=== PATIENT | male | born 1985 | race Caucasian/White ===

== ENCOUNTER 2019-04-08 10:14 | Emergency (ER) | payer OTHER ==
[2019-04-08] MEDS ORDERED: Morphine 4 MG/ML VIAL ONE (10:33)
[2019-04-08] MEDS ORDERED: Ondansetron PF 4 MG/2 ML Vial ONE (10:33)
[2019-04-08 10:47] LABS: #Eosinphils 0.1 thou/uL (0.0-0.7); #Lymphocytes 1.5 thou/uL (1.20-3.40); #Monocytes 0.8 thou/uL (0.11-0.59); #Neutrophils 14.1 thou/uL (1.40-6.50); %Basophils 0.3 % (0.0-1.0); %Eosinophils 0.6 % (0.0-10.0); %Lymphocytes 9.1 % (21.0-51.0); %Monocytes 4.8 % (0.0-10.0); %Neutrophils 85.3 % (42.0-75.0); Hemoglobin 14.5 g/dL (14.0-18.0); Mean Corpuscular HGB CONC 34.6 g/dL (32.0-36.0); Mean Corpuscular Hemoglobin 29.9 pg (27.0-31.0); Mean Corpuscular Volume 86.4 fL (78.0-98.0); Mean Platelet Volume 9.4 fL (7.4-10.4); Platelet Count 284 thou/uL (130-400); RBC Distribution Width 11.4 % (11.5-14.5); Red Blood Cell (RBC) Count 4.85 mill/uL (4.70-6.10); White Blood Cell (WBC) Count 16.5 thou/uL (4.8-10.8)
[2019-04-08 11:05] LABS: ALT (SGPT) 78 U/L (8-55); AST (SGOT) 23 U/L (5-34); Albumin 4.8 g/dL (3.5-5.0); Alkaline Phosphatase 64 U/L (40-150); Anion Gap 15 mmol/L (10-20); BUN (Urea Nitrogen) 21 mg/dL (8.9-20.6); Bilirubin, Total 0.4 mg/dL (0.2-1.2); Calc. Creatinine Clearance 0 mL/min (70-130); Calcium 9.9 mg/dL (7.8-10.44); Carbon Dioxide 21 mmol/L (22-29); Chloride 102 mmol/L (98-107); Estimated GFR-MDRD 65; Globulin 3.4 g/dL (2.4-3.5); Glucose 104 mg/dL (70-105); Potassium 4.4 mmol/L (3.5-5.1); Protein, Total 8.2 g/dL (6.0-8.3); Sodium 134 mmol/L (136-145)
--- NOTE | 2019-04-08 11:16 | CT ---
CT of abdomen and pelvis: 04/08/2019 COMPARISON: None available HISTORY: Flank pain TECHNIQUE: Axial CT imaging at 5 mm intervals from lung bases through pubic symphysis without contras t. Coronal reformatted imaging obtained. FINDINGS: Lack of contrast media limits assessment of the viscera, bowel, vascular structures, and fo r lymphadenopathy. The imaged lung bases are unremarkable. No free intraperitoneal air or fluid. The liver, spleen, gall bladder, pancreas, and adrenal glands demonstrate no acute findings. There is no evidence for obstructive uropathy or nephrolithiasis on the right. There is hydronephrosis and hydroureter on the left. This is secondary to an obstructing stone at the level of the ureterovesicular junction, best seen on axial image #87, measuring approximately 3 mm. Limited assessment of the bowel demonstrates no acute findings. The appendix is unremarkable. Review of the osseous structures demonstrates no worrisome lytic or blastic lesion. IMPRESSION: Obstructive uropathy on the left secondary to a 3 mm distal obstructing left ureteral sto ne.
[2019-04-08] MEDS ORDERED: Ketorolac Tromethamine 30 MG/ML VIAL ONE (11:25)
[2019-04-08 12:06] LABS: Bilirubin Negative (Negative); Blood, Urine Moderate (Negative); Clarity CLEAR (Clear); Glucose, Urine (Dipstick) Negative (Negative); Leukocyte Negative (Negative); Nitrite Negative (Negative); Protein, Urine (Dipstick) Trace mg/dL (Neg-Trace); Specific Gravity, Urine 1.034 (1.002-1.036); Urobilinogen 0.2 mg/dL (0.2-1.0); pH, Urine 6.5 (5.0-9.0)
[2019-04-08 12:13] LABS: Bacteria/HPF None Seen HPF (None Seen); Hyaline Casts/LPF 4-6 HYALINE CAST LPF (0-3 Hyaline); Squamous Epithelial 0-3 HPF (0-3); WBC/HPF 0-3 HPF (0-3)
== END 2019-04-08 12:28 ==
LOC: ERS 10:14
DX: N13.2 Hydronephrosis with renal and ureteral calculous obstruction (principal)
CPT/HCPCS: 36415; 74176; 80053; 81003; 81015; 83605; 85025; 87040; 87086; 96361; 96374; 96375; J1885; J2270; J2405